=== PATIENT | male | born 1955 | race Caucasian/White ===

== ENCOUNTER 2023-07-13 00:32 | Emergency (ER) | payer MEDICARE ==
[~2023-07-13] VITALS: Ht 182.9 cm; Wt 104.5 kg
[2023-07-13] MEDS ORDERED: ZESTORETIC 20-1 EACH (00:36)
[2023-07-13] MEDS ORDERED: Ketorolac 30 MG/ML VIAL IV ONE (00:45)
[2023-07-13] MEDS ORDERED: fentaNYL 100 MCG/2 ML VIAL IV ONE (01:00)
[2023-07-13 02:39] LABS: BASO # 0.02 K/mm3 (0.02-0.10); EOS # 0.16 K/mm3 (0.04-0.40); EOS % 2.4 % (0.0-4.0); HEMATOCRIT 41.1 % (42.0-52.0); HEMOGLOBIN 14.9 g/dL (13.5-18.0); LYMPH# 1.98 K/mm3 (1.50-4.00); MEAN CELL VOLUME 89 fl (78-100); MEAN CORPUSCULAR HEMOGLOBIN 32 pg (27-31); MEAN CORPUSCULAR HGB CONC 36 g/dL (33-37); MEAN PLATELET VOLUME 8.3 fl (7.4-10.4); MONO # 0.84 K/mm3 (0.20-0.80); NEU # 3.54 K/mm3 (1.40-6.50); PLATELET COUNT 230 K/mm3 (130-400); RED BLOOD COUNT 4.61 M/mm3 (4.20-5.60); WHITE BLOOD COUNT 6.6 K/mm3 (4.8-10.8)
[2023-07-13 02:52] LABS: CALCIUM 9.2 mg/dL (8.3-10.5)
[2023-07-13 03:23] VITALS: BP 143/70
== END 2023-07-13 03:25 | disposition short-term general hospital (02) ==
LOC: ED 00:32
PROVIDERS: Family Medicine
DX: S82.62XA Displaced fracture of lateral malleolus of left fibula, initial encounter for closed fracture (principal); S93.115A Dislocation of interphalangeal joint of left lesser toe(s), initial encounter; W10.9XXA Fall (on) (from) unspecified stairs and steps, initial encounter; Y92.009 Unspecified place in unspecified non-institutional (private) residence as the place of occurrence of the external cause
CPT/HCPCS: J1885; J3010